=== PATIENT | male | born 1980 ===

== ENCOUNTER 2017-01-20 14:23 | Emergency (ER) | payer OTHER ==
[~2017-01-20] VITALS: Ht 177.8 cm; Wt 72.6 kg
--- NOTE | 2017-01-20 14:37 | NUR ---
ARRIVAL PATIENT ARRIVED TO ED8 VIA GURNEY BY [facility], C/O OF DEPRESSION AND SUICIDAL IDEATIONS TODAY, PLAN IS VERY VAGUE, STATES HE AND HIS GIRLFRIEND BROKE UP AND HIS DAD IS DYING AND HE HAS BEEN DRINKING FOR THREE DAYS, PATIENT IS TEARFUL AND CRYING AT TIME OF ASSESSMENT, DOCTOR JOAO NOTIFIED OF PATIENTS ARRIVAL. NO DISTRESS NOTED,
--- NOTE | 2017-01-20 14:49 | ER.PDOC ---
General Chief Complaint: Psychiatric Complaint Stated Complaint: SI TRAVEL OUT OF US: No Time seen by MD: 14:47 Source: patient Exam Limitations: no limitations History of Present Illness Initial Comments Broke up with his girlfriend and his dad is dying. He is upset and drank heavily today. Denies suicidal or homicidal ideation. Severity: moderate Associated Symptoms: denies symptoms Allergies: Coded Allergies: No Known Allergies (Unverified , 01/20/17) Home Meds No Active Prescriptions or Reported Meds Past Medical History Surgical History: appendectomy Social History Smoking: cigarettes Alcohol Use: heavy Drug Use: none Review of Systems Constitutional: no symptoms reported Respiratory: no symptoms reported Cardiovascular: no symptoms reported Gastrointestinal: no symptoms reported Musculoskeletal: no symptoms reported Psychiatric/Neurological: see HPI All Other Systems: Reviewed and Negative Physical Exam General Appearance: No Apparent Distress, WD/WN, Other (Alcohol breathe) Neck: Non-Tender, Full Range of Motion Respiratory: chest non-tender, lungs clear, normal breath sounds, no respiratory distress CVS: reg rate & rhythm, no murmur, no gallop, pulses nml, nml capillary refill Gastrointestinal: Normal Bowel Sounds, No Organomegaly, No Pulsatile Mass, Non Tender Back: Normal Inspection, No CVA Tenderness Extremities: Normal Range of Motion 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 Results/Orders Results/Orders Laboratory Tests Test 01/20/17 14:55 Opiates Screen Negative (NEGATIVE) Barbiturate Screen Negative (NEGATIVE) Urine Tricyclic Antidepressants Negative (NEGATIVE) Phencyclidine (PCP) Screen Negative (NEGATIVE) Amphetamines Screen Negative (NEGATIVE) Benzodiazepines Screen Negative (NEGATIVE) Cocaine Screen Negative (NEGATIVE) Ur Tetrahydrocannabinol (THC) Scrn Negative (NEGATIVE) Serum Alcohol 325 mg/dL (3-50) Departure Time of Disposition: 15:19 Disposition: 01 HOME, SELF-CARE Impression: Primary Impression: Acute alcoholic intoxication in alcoholism Qualified Codes: F10.229 - Alcohol dependence with intoxication, unspecified Condition: Stable Additional Instructions: Follow up with Substance abuse program Scripts No Active Prescriptions or Reported Meds NIRU SHEPHERD MD Jan 20, 2017 14:49
--- NOTE | 2017-01-20 15:05 | NUR ---
STATUS DOCTOR JOAO AND PA STUDENT RACHEL TO ROOM, PATIENT DENYING SUICIDAL IDEATIONS, JUST STATES HE IS UPSET.
[2017-01-20 15:12] LABS: UR BENZODIAZEPINE QUAL NEGATIVE (NEGATIVE); UR COCAINE QUAL NEGATIVE (NEGATIVE)
--- NOTE | 2017-01-20 15:25 | NUR ---
status PATIENT CONTINUES TO DENY SUICIDAL IDEATIONS, STATES "I WAS JUST MADE.", ATTEMPTING TO FIND A RIDE HOME AT THIS TIME.
--- NOTE | 2017-01-20 16:28 | NUR ---
STATUS PATIENT UNABLE TO FIND A RIDE, LEFT ED AMBULATORY WALKING.
[2017-01-20 16:29] VITALS: BP 170/93
== END 2017-01-20 15:30 | disposition home or self-care (01) ==
LOC: ER 14:23
DX: F10.129 Alcohol abuse with intoxication, unspecified (principal); F17.210 Nicotine dependence, cigarettes, uncomplicated; Y90.8 Blood alcohol level of 240 mg/100 ml or more
CPT/HCPCS: 36415; 80307; 99284; G0481